=== PATIENT | male | born 1970 | race Two or more races ===

== ENCOUNTER 2016-07-09 16:36 | Emergency (ER) | payer OTHER ==
--- NOTE | ~2016-07-09 | CR170 ---
[facility] A Service of [facility] & [facility] RADIOLOGY TEXT RESULTS PATIENT: TOBI WONG LOCATION: [facility] : 66 UNIT #: [id number] AGE: [address]: Joanne Wells APRN SEX: M ORDER DR: [id number] [facility] [address] [place], [place] [address] [id number] E MR#: [id number] Acc #: [id number] NAME: TOBI WONG : 1970 SEX: M STUDY DATE/TIME: 07/09/2016 16:40 UNIT: [facility] ROOM: STUDY DESCRIPTION: CR Knee 2 Views Rt Attending Physician: Joanne Wells A.P.R.N. Ordering Physician: Julian Tan M.D. Primary Care Physician: Stella Aj M.D. MEDICAL IMAGING REPORT This report is preliminary unless electronic signature is present EXAM Knee, right, 2 views INDICATIONS Knee pain laterally posteriorly for 2 weeks right. No injury. COMMENT 2 views of the right knee were reviewed. FINDINGS There is a fairly large suprapatellar joint effusion present. There is patellofemoral joint space narrowing and some evidence of chondromalacia patella. Probably milder degenerative changes in the tibiofemoral compartments. No acute fracture or dislocation or radiopaque foreign body. IMPRESSION Fairly large suprapatellar joint effusion. 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 If more information is needed and the patient is candidate findings are best assessed further with an MRI. Please exclude any clinical concern for infection given the presence of a joint effusion and the absence of trauma history. Dictated by... Claudia Ordonez M.D. THIS IS AN ELECTRONICALLY VERIFIED REPORT Claudia Ordonez M.D. at 07/10/2016 8:07 AM SAC/to TD: 07/09/2016 20:57 JOB #: [id number] [facility] A Service of [facility] & [facility] RADIOLOGY TEXT RESULTS PATIENT: TOBI WONG [id number] [birth year] UNIT #: [id number] AGE: [address]: Joanne Wells APRN SEX: M ORDER DR: MEDICAL IMAGING REPORT Page 1 of 1 COPY
--- NOTE | ~2016-07-09 | US85 ---
[facility] A Service of [facility] & [facility] RADIOLOGY TEXT RESULTS PATIENT: TOBI WONG LOCATION: [facility] : 66 UNIT #: [id number] AGE: [address]: Joanne Wells APRN SEX: M ORDER DR: [id number] [facility] [address] [place], [place] [address] [id number] E MR#: [id number] Acc #: [id number] NAME: TOBI WONG : 1970 SEX: M STUDY DATE/TIME: 07/09/2016 17:17 UNIT: [facility] ROOM: STUDY DESCRIPTION: [facility] Attending Physician: Joanne Wells A.P.R.N. Ordering Physician: Joanne Wells A.P.R.N. Primary Care Physician: Stella Aj M.D. MEDICAL IMAGING REPORT This report is preliminary unless electronic signature is present EXAM Right lower extremity Doppler HISTORY 46-year-old male with right lower extremity thigh pain x2 weeks. FINDINGS 2-D Doppler evaluation of the right lower extremity demonstrates normal flow and compressibility of the major veins of the right lower extremity. No intraluminal thrombus identified. A few small right groin nodes. These do not appear pathologically enlarged. IMPRESSION No sonographic evidence of DVT within the right lower extremity. Dictated by... Katie Wilks M.D. THIS IS AN ELECTRONICALLY VERIFIED REPORT Katie Wilks M.D. at 07/10/2016 6:36 PM ALLA/clinton TD: 07/09/2016 22:02 JOB #: [id number] MEDICAL IMAGING REPORT Page 1 of 1 COPY
[2016-07-09 17:46] LABS: CALCIUM SERUM 9.3 mg/dL (8.4-10.2); GLOM FILT RATE Estimated 88.6 mL/min (>60); POTASSIUM 4.2 mmol/L (3.5-5.1)
[2016-07-09 17:48] LABS: BASOPHIL% 0.4 % (0-2.5); EOSINOPHIL# 0.1 X10e3 (0-0.7); EOSINOPHIL% 1.1 % (0.0-7.0); HEMATOCRIT 46.1 % (38.0-50.0); HEMOGLOBIN 15.3 gm/dL (13.0-16.0); LYMPHOCYTE# 2.5 X10e3 (1.0-3.5); LYMPHOCYTE% 20.9 % (17.0-45.0); MEAN CELL VOLUME 87.4 FL (83-96); MEAN CORPUSCULAR HEMOGLOBIN 29.1 PG (28-34); MEAN CORPUSCULAR HGB CONC 33.2 g/dL (30-36); MEAN PLATELET VOLUME 8.3 FL (6.5-11.5); MONOCYTE% 8.1 % (3.0-12.0); NEUTROPHIL# 8.3 X10e3 (1.5-7.1); NEUTROPHIL% 69.5 % (40-75); PLATELET COUNT 234 X10e3 (140-420); RED BLOOD COUNT 5.28 X10e (3.90-5.60); WHITE BLOOD COUNT 11.9 X10e3 (4.0-10.5)
[2016-07-09 17:54] LABS: DIFF IND NO
[2016-07-09 17:59] LABS: URIC ACID 5.1 mg/dL (2.6-7.2)
== END 2016-07-09 18:35 | disposition home or self-care (01) ==
LOC: CFTX 16:36
PROVIDERS: Nurse Practitioner
DX: M25.461 Effusion, right knee (principal); I10 Essential (primary) hypertension
CPT/HCPCS: 29505; 73560; 80048; 84550; 85025; 86140; 93971; 99284